=== PATIENT | male | born 1965 | race Caucasian/White ===

== ENCOUNTER → 2016-06-10 | Outpatient (CLI) | payer BC ==
--- NOTE | 2016-06-10 08:46 | US ---
EXAMINATION TYPE: US prostate transrectal DATE OF EXAM: 06/10/2016 8:30 AM COMPARISON: NONE CLINICAL HISTORY: R97.20 elevated psa. This examination was performed using the transrectal probe. EXAM MEASUREMENTS: Gland Size: 4.0 x 2.4 x 3.8cm Volume: 19.1 Predicted PSA: 2.3 Actual PSA (if available):4.9 Heterogeneous gland, central calcifications. No distinct mass seen. Seminal vesicles are normal in size and appear grossly unremarkable. Prostate gland is normal in size . No worrisome hypoechoic nodules are identified. IMPRESSION: Prostate gland is normal in size, no worrisome nodules identified. Given fact patient's actual PSA is out of proportion to what is expected for predicted PSA, further investigation with ult rasound guided random prostate sampling is advised.
== END | disposition home or self-care (01) ==
LOC: RADUSMAIN 07:51
PROVIDERS: ATTEND Internal Medicine
DX: R97.20 Elevated prostate specific antigen [PSA] (principal)
CPT/HCPCS: 76872

== ENCOUNTER 2016-07-04 08:44 | Day surgery (SDC) | payer BC ==
[2016-07-04 09:22] VITALS: TEMP 97.7
[2016-07-04 10:06] VITALS: PULSE 90
[2016-07-04 12:16] VITALS: BP 162/76; RESP 18
--- NOTE | 2016-07-04 12:32 | US ---
Ultrasound-guided transrectal biopsy of the prostate gland. HISTORY: Elevated PSA. Informed consent was obtained and all the patient's questions were answered. Topical Xylocaine gel w as applied to the probe. The prostate gland was localized sonographically and 12 total samples were obtained with 2 samples obtained from each site. An 18-gauge biopsy device was utilized. Sites incl ude right base, left base, right mid gland, left mid gland, right apex and left apex. Samples were s ent to pathology further evaluation. The patient was monitored following the biopsy for approximatel y one hour. At the time of discharge patient's urine was clear and vitals were stable. IMPRESSION: Successful ultrasound guided core biopsy of the prostate gland. Pathology results are pe nding.
== END 2016-07-04 12:16 | disposition home or self-care (01) ==
LOC: RADPROMAIN 08:44
PROVIDERS: ATTEND Internal Medicine
DX: N41.0 Acute prostatitis (principal); N42.89 Other specified disorders of prostate; I10 Essential (primary) hypertension; Z79.899 Other long term (current) drug therapy
CPT/HCPCS: 55700; 88305